=== PATIENT | female | born 1975 | race Caucasian/White ===

== ENCOUNTER 2019-07-21 22:03 | Day surgery (SDC) | payer OTHER ==
[2019-07-21 23:48] LABS: ABSOLUTE LYMPHOCYTES (AUTO) 1.6 10^3/uL (0.5-4.7); ABSOLUTE MONOCYTES (AUTO) 0.4 10^3/uL (0.1-1.4); ABSOLUTE NEUT (AUTO) 10.9 10^3/uL (1.7-8.2); BASOPHILS % (AUTO) 0.2 % (0-2); EOSINOPHILS % (AUTO) 0.3 % (0-6); HEMATOCRIT 36.3 % (36.0-47.0); HEMOGLOBIN 12.4 g/dL (12.0-15.5); LYMPHOCYTES % (AUTO) 12.1 % (13-45); MEAN CORPUSCULAR HEMOGLOBIN 27.1 pg (27.0-33.4); MEAN CORPUSCULAR HGB CONC 34.2 g/dL (32.0-36.0); MEAN CORPUSCULAR VOLUME 79 fl (80-97); MONOCYTES % (AUTO) 2.8 % (3-13); PLATELET COUNT 341 10^3/uL (150-450); RED BLOOD COUNT 4.58 10^6/uL (3.72-5.28); RED CELL DISTRIBUTION WIDTH 15.4 % (11.5-14.0); SEGMENTED NEUTROPHILS % (AUTO) 84.6 % (42-78); TOTAL CELLS COUNTED % (AUTO) 100 %; WHITE BLOOD COUNT 12.9 10^3/uL (4.0-10.5)
--- NOTE | 2019-07-22 00:05 | ER Document Report ---
ED General - General Chief Complaint: Vag Bleeding, +preg <12wks Stated Complaint: VAGINAL PAIN/BLEEDING Time Seen by Provider: 07/21/19 22:40 - HPI Notes: This is a 44-year-old female who is G2, P0, who presents today with a complaint of vaginal bleeding. Patient states that around 630 today she started having some cramping and bleeding. She passed the fetus at home. She states the umbilical cord is still stuck in her cervix. She is still bleeding. She denies any fever or chills. She denies any weakness or dizziness. She is uncertain how far along she was, but states that her last menstrual. Was around March each. She has had irregular periods. - Related Data Allergies/Adverse Reactions: No Known Allergies Allergy (Unverified 07/21/19 22:37) Past Medical History - Social History Smoking Status: Never Smoker Chew tobacco use (# tins/day): No Frequency of alcohol use: None Family History: Reviewed & Not Pertinent Patient has suicidal ideation: No Patient has homicidal ideation: No Review of Systems - Review of Systems Cardiovascular: denies: Chest pain, Palpitations Gastrointestinal: denies: Abdominal pain, Diarrhea, Nausea Genitourinary: denies: Discharge Female Genitourinary: , Vaginal bleeding -: Yes All other systems reviewed and negative Physical Exam - Vital signs Vitals: Temp Pulse Resp BP Pulse Ox 98.1 F 95 16 147/79 H 99 07/21/19 22:17 07/21/19 22:17 07/21/19 22:17 07/21/19 22:17 07/21/19 22:17 - General General appearance: Appears well, Alert - Respiratory Respiratory status: No respiratory distress Chest status: Nontender Breath sounds: Normal Chest palpation: Normal - Cardiovascular Rhythm: Regular Heart sounds: Normal auscultation Murmur: No - Abdominal Inspection: Normal Distension: No distension Bowel sounds: Normal Tenderness: Nontender Organomegaly: No organomegaly - Genitourinary Speculum exam: Products of conception, Other - There is part of the umbilical cord that is visible. There is a fair amount of bleeding. Cervix is open. Vaginal bleeding: Moderate Bimanuel exam: No: Cervical motion tender, Bladder/Urethral tender, Adnexal tenderness - Psychological Associated symptoms: Normal affect, Normal mood Course - Re-evaluation Re-evalutation: 07/22/19 00:10 Clinical picture is consistent with a spontaneous . Patient's care discussed with Dr. Jorge, CREDIT RISK MANAGEMENT DIRECTOR. She recommends Cytotec 800 mcg rectally, and encouraged the patient to massage the lower abdomen. Will observe the patient for about 30 minutes to see if she passes the umbilical cord. If it does not, I will call Dr. Jorge again and she will come see the patient. 07/22/19 02:17 Pt evaluated. We have massaged her abdomen. She has not yet delivered the placenta. Pt's care discussed with Dr. Jorge again. She will evaluate pt. 07/22/19 03:48 Patient has been seen by Dr. jorge. Patient will be going to the OR for D and E. - Vital Signs Vital signs: Temp Pulse Resp BP Pulse Ox 98.7 F 93 20 116/80 99 07/22/19 03:12 07/22/19 03:12 07/22/19 03:12 07/22/19 03:12 07/22/19 03:12 - Laboratory Result Diagrams: 07/21/19 23:30 07/21/19 23:30 Laboratory results interpreted by me: 07/21/19 07/21/19 23:30 23:30 WBC 12.9 H MCV 79 L RDW 15.4 H Lymph % (Auto) 12.1 L [place] % (Auto) 2.8 L Absolute Neuts (auto) 10.9 H Seg Neutrophils % 84.6 H Sodium 136.9 L Carbon Dioxide 21 L Glucose 119 H Beta HCG, Quant 365.98 H Discharge - Discharge Clinical Impression: Spontaneous Condition: Stable Disposition: ADMITTED INPATIENT Admitting Provider: Dr. Jorge - CREDIT RISK MANAGEMENT DIRECTOR Unit Admitted: OR
[2019-07-22 00:07] LABS: ALBUMIN 4.2 g/dL (3.5-5.0); ALKALINE PHOSPHATASE 57 U/L (38-126); ANION GAP 12 (5-19); ASPARTATE AMINO TRANSFERASE 18 U/L (14-36); BILIRUBIN,DIRECT 0.1 mg/dL (0.0-0.4); BILIRUBIN,TOTAL 0.9 mg/dL (0.2-1.3); BLOOD UREA NITROGEN 10 mg/dL (7-20); CALCIUM 9.7 mg/dL (8.4-10.2); CARBON DIOXIDE 21 mmol/L (22-30); CHLORIDE 104 mmol/L (98-107); GLUCOSE 119 mg/dL (75-110); POTASSIUM 3.8 mmol/L (3.6-5.0); TOTAL PROTEIN 7.2 g/dL (6.3-8.2)
[2019-07-22] MEDS ORDERED: MISOPROSTOL 0.2 MG TABLET PR ONE ×2 (00:12→02:54)
[2019-07-22] MEDS ORDERED: NORMAL SALINE 1000 ML 1,000 ML IV ONE (00:15)
--- NOTE | 2019-07-22 02:08 | RADIOLOGY REPORT (SQ) ---
CLINICAL HISTORY: first trimestr bleed COMPARISON: None. TECHNIQUE: US LESS THAN 14 WEEKS on 07/21/2019 11:49 PM CDT FINDINGS: Uterus measures 12.0 cm. Endometrial stripe measures 3.1 cm. There is a possible left-sided uterine fibroid measuring 2.3 cm. Both ovaries are normal in appearance with patent flow. IMPRESSION: Diffuse thickening of the endometrial stripe. Recommend PER DIEM CLERK evaluation.
--- NOTE | 2019-07-22 03:27 | PDOC H&P ---
History of Present Illness Admission Date/PCP: This 44-year-old G1 presented to [facility] emergency department complaining of vaginal bleeding and passing a fetus. She is unsure of her last menstrual. But the fetus appears to be approximately 16 weeks. Her pelvic exam showed an umbilical cord extending from the vagina. Patient was taken to the radiology department, where she underwent a pelvic ultrasound transabdominally which showed products o f conception in the lower uterine segment/vagina. Patient complains of: Vaginal bleeding and passing a fetus History of Present Illness: LNYN FINE is a 44 year old G1 presented to [facility] emergency department complaining of vaginal bleeding and passing a fetus. She is unsure of her last menstrual. But the fetus appears to be approximately 16 weeks. Her pelvic exam showed an umbilical cord extending from the vagina. Patient was taken to the radiology department, where she underwent a pelvic ultrasound transabdominally which showed products of conception in the lower uterine segment/vagina. Past Medical History LMP: irregular March or April 1 Spontaneous Year: 019 Weeks: 16 Delivery: Spontaneous Vaginal Delivery, Other Past Surgical History Past Surgical History: Reports: None Social History Smoking Status: Never Smoker Electronic Cigarette use?: No Frequency of Alcohol Use: Rare Hx Recreational Drug Use: No Family History Family History: None Parental Family History Reviewed: Yes Children Family History Reviewed: NA Sibling(s) Family History Reviewed.: NA Medication/Allergy Allergies/Adverse Reactions: No Known Allergies Allergy (Unverified 07/21/19 22:37) Physical Exam - Physical Exam Vital Signs: Temp Pulse Resp BP Pulse Ox 98.1 F 95 16 147/79 H 99 07/21/19 22:17 07/21/19 22:17 07/21/19 22:17 07/21/19 22:17 07/21/19 22:17 Intake & Output 07/20/19 07/21/19 07/22/19 06:59 06:59 06:59 Intake Total 1000 Balance 1000 Weight 75.7 kg General appearance: PRESENT: no acute distress Respiratory exam: PRESENT: clear to auscultation greg Cardiovascular exam: PRESENT: RRR Extremities exam: ABSENT: calf tenderness, clubbing, full ROM, joint swelling, pedal edema, tenderness, +1 edema, +2 edema, other - Obstetrical Exam Vagina: other - Vaginal bleeding with membranes and placenta membranes extruding from the cervix Dilation (cm): 1 Adhexa: normal Result Laboratory Results: 07/21/19 23:30 07/21/19 23:30 07/21/19 07/21/19 07/21/19 23:30 23:30 23:30 WBC 12.9 H RBC 4.58 Hgb 12.4 Hct 36.3 MCV 79 L MCH 27.1 MCHC 34.2 RDW 15.4 H Plt Count 341 Seg Neutrophils % 84.6 H Sodium 136.9 L Potassium 3.8 Chloride 104 Carbon Dioxide 21 L Anion Gap 12 BUN 10 Creatinine 0.54 Est GFR ( Amer) > 60 Glucose 119 H Calcium 9.7 Total Bilirubin 0.9 AST 18 Alkaline Phosphatase 57 Total Protein 7.2 Albumin 4.2 Lipase 40.7 Blood Type O NEGATIVE Antibody Screen NEGATIVE Impressions: Obstetrics Ultrasound 07/21/19 23:49 IMPRESSION: Diffuse thickening of the endometrial stripe. Recommend GRAIN THRESHER evaluation. Assessment & Plan - Diagnosis (1) Incomplete Is this a current diagnosis for this admission?: Yes (2) Blood type, Rh positive Is this a current diagnosis for this admission?: Yes - Time Time Spent: 30 to 50 Minutes Anticipated discharge: Home - Plan Summary Plan Summary: 1. Sent patient for suction dilatation and curettage 2. Doxycycline 100 mg IV prior to start of surgery 3. Anticipate discharge after procedure
[2019-07-22] MEDS ORDERED: DOXYCYCLINE HYCLATE INJ 100 MG VIAL IV ONE (03:40)
[2019-07-22] MEDS ORDERED: KETOROLAC TROMETHAMINE 60 MG/2 ML SDV ONE (03:43)
[2019-07-22] MEDS ORDERED: FENTANYL CITRATE INJ/PF 100 MCG/2 ML AMPUL ONE (03:44)
[2019-07-22] MEDS ORDERED: PROPOFOL INJ 200 MG/20 ML VIAL IV ONE (03:44)
[2019-07-22] MEDS ORDERED: METHYLERGONOVINE MALEATE INJ/PF 0.2 MG/1 ML AMPULE ONE (03:44)
[2019-07-22] MEDS ORDERED: MIDAZOLAM 2 MG/2 ML INJ ONE (03:44)
[2019-07-22] MEDS ORDERED: ONDANSETRON HCL INJ/PF 4 MG/2 ML SDV ONE (03:44)
[2019-07-22] MEDS ORDERED: DEXAMETHASONE SOD PHOSPHATE INJ 4 MG/1 ML VIAL ONE (03:44)
[2019-07-22] MEDS ORDERED: MISOPROSTOL 0.2 MG TABLET VG ONE (04:30)
[2019-07-22] MEDS ORDERED: MISOPROSTOL 0.2 MG TABLET ONE (04:34)
[2019-07-22] MEDS ORDERED: OXYTOCIN 10 UNIT/ML VIAL ONE (04:40)
--- NOTE | 2019-07-22 04:57 | Operative Report ---
Operative Report DATE OF SURGERY: 07/22/19 PREOPERATIVE DIAGNOSIS: 1. Incomplete at approximately 16 weeks. 2. Rh+ POSTOPERATIVE DIAGNOSIS: Same OPERATION: Suction dilatation and curettage SURGEON: NORMA LOWERY ANESTHESIA: GA TISSUE REMOVED OR ALTERED: Placental tissue and membranes COMPLICATIONS: None QUANTITATIVE BLOOD LOSS: 250 INTRAOPERATIVE FINDINGS: Uterus sounded to 10 cm; used 10 mm curved [place] curette; cervix dilated approximately 2 cm; minimal amounts of retained placental tissue and membranes removed PROCEDURE: The patient was taken to the Operating Room where general anesthesia was obtained without difficulty. She was prepped and draped in the normal sterile fashion in the dorsal lithotomy position. Exam under anesthesia was performed and noted above. A speculum was placed in the vagina. The anterior cervix was grasped with a single-tooth tenaculum and the uterus sounded to 10 cm. The cervix was noted to be dilated approximately 2 cm at the beginning of the procedure. The 10 mm curved suction curette was gently advanced in the usual fashion and good return of tissue. The suction device was then activated and the curette rotated to clear the uterus of the products of conception. A sharp curettage was then performed. The suction device was then gently reintroduced and activated and the curette rotated to clear the uterus of conception which was loosened with recent sharp curettage. The sharp curettage was then performed again until a gritty texture was noted and the cavity was felt to be empty of further tissue. At this time there was minimal bleeding noted from the cervix. All instruments were removed from the patient's cervix and vagina. Sponge, lap, needle and instrument counts are correct 2. Doxycycline 100 mg IV was given perioperatively. She was also given Methergine 0.2 mg IM, as well as 1000 mcg of Cytotec per rectum. The patient tolerated the procedure well and was taken to the recovery area awake and in stable condition. The patient was discharged home in stable condition.
[2019-07-22] MEDS ORDERED: ONDANSETRON HCL INJ/PF 4 MG/2 ML SDV IV PRN (05:24)
[2019-07-22 05:50] VITALS: BP 110/61
--- NOTE | 2019-07-22 07:15 | ER Document Report ---
ED Medical Screen (RME) - General Chief Complaint: Vag Bleeding, +preg <12wks Stated Complaint: VAGINAL PAIN/BLEEDING Time Seen by Provider: 07/21/19 22:40 Mode of Arrival: Ambulatory Information source: Patient Notes: Patient presents with complaints of passing tissue vaginal bleeding. Unknown if . Denies trauma. I have greeted and performed a rapid initial assessment of this patient. A comprehensive ED assessment and evaluation of the patient, analysis of test results and completion of the medical decision making process will be conducted by additional ED providers. Dictation of this chart was performed using voice recognition software; therefore, there may be some unintended grammatical errors. TRAVEL OUTSIDE OF THE [place] IN LAST 30 DAYS: No - Related Data Allergies/Adverse Reactions: No Known Allergies Allergy (Unverified 07/21/19 22:37) Past Medical History - Social History Chew tobacco use (# tins/day): No Frequency of alcohol use: None Past Surgical History: Reports: None Physical Exam - Vital signs Vitals: Temp Pulse Resp BP Pulse Ox 98.1 F 95 16 147/79 H 99 07/21/19 22:17 07/21/19 22:17 07/21/19 22:17 07/21/19 22:17 07/21/19 22:17 Course - Vital Signs Vital signs: Temp Pulse Resp BP Pulse Ox 98.7 F 89 18 110/61 99 07/22/19 05:46 07/22/19 05:46 07/22/19 05:46 07/22/19 05:46 07/22/19 05:46 - Laboratory Result Diagrams: 07/21/19 23:30 07/21/19 23:30 Laboratory results interpreted by me: 07/21/19 07/21/19 23:30 23:30 WBC 12.9 H MCV 79 L RDW 15.4 H Lymph % (Auto) 12.1 L [place] % (Auto) 2.8 L Absolute Neuts (auto) 10.9 H Seg Neutrophils % 84.6 H Sodium 136.9 L Carbon Dioxide 21 L Glucose 119 H Beta HCG, Quant 365.98 H Doctor's Discharge - Discharge Clinical Impression: Spontaneous Condition: Stable Disposition: ADMITTED INPATIENT
[2019-07-22] MEDS ORDERED: SUCCINYLCHOLINE CHLORIDE INJ 200 MG/10 ML VIAL ONE (10:15)
== END 2019-07-23 14:23 | disposition home or self-care (01) ==
LOC: ER 22:03 → OROUT 07-22 03:52 → UNDOADMIN 07-22 03:52 → EH 07-22 03:52 → OROUT 07-23 14:23 → UNDODISIN 07-23 14:23
PROVIDERS: ATTEND Obstetrics & Gynecology
DX: O03.4 Incomplete spontaneous abortion without complication (principal); O36.0920 Maternal care for other rhesus isoimmunization, second trimester, not applicable or unspecified; Z3A.16 16 weeks gestation of pregnancy
CPT/HCPCS: 99285; 96360; 86900; 86901; 36415; 86850; 84702; 83690; 85025; 80053; 88305 ×2; 76801; 93976; 00940; 59812; J2250; J1100; J3490; J1885; J3010; J2210; J2590; J0330; J2405; J7030; J2704; 940